=== PATIENT | male | born 2000 | race Caucasian/White ===

== ENCOUNTER 2024-09-15 23:35 | Emergency (ER) | payer OTHER, SELFPAY ==
--- NOTE | ~2024-09-15 | CT_ITS ---
CT of the Abdomen and Pelvis: Indication: Abdominal pain Technique: 2.5 mm axial scans were obtained through the abdomen and pelvis following intravenous adm inistration of 100 cc of Omnipaque 350. Dose reduction technique was used on this scan by utilizing a utomated exposure control and iterative reconstruction technique. The dose-length product (DLP) was 4 59.48 mGy-cm. Findings: Scans through the lung bases demonstrate calcified medial left basilar pulmonary nodule. The liver, spleen, pancreas, gallbladder, adrenals and kidneys are within normal limits. No evidence of aortic aneurysm. No lymphadenopathy. No bowel obstruction or bowel wall thickening. There is no evidence to suggest acute appendicitis. Images through the pelvis were performed. Urinary bladder unremarkable. No pelvic mass seen. No ascit es. Impression: No significant abnormalities seen. Reviewed, dictated and finalized at [facility]. RY SAW OPERATOR Impression: No significant abnormalities seen.
[2024-09-15 23:48] VITALS: BP 99/65; PULSE 67; RESP 16; TEMP 36.6; O2SAT 100
[2024-09-16 00:07] LABS: Alanine Aminotransferase 21 U/L (6-50); Albumin Level 4.5 g/dL (3.5-5.1); Alkaline Phosphatase 59 U/L (38-126); Anion Gap 7 mmol/L (4-12); Aspartate Amino Transferase 21 U/L (17-59); Bilirubin,Total 0.8 mg/dL (0.2-1.3); Blood Urea Nitrogen 12 mg/dL (9-20); Carbon Dioxide 29 mmol/L (22-30); Chloride 103 mmol/L (98-107); Estimated CRCL calculation 126 ml/min; Estimated Glomerular Filt Rate > 60; Glucose 106 mg/dL (65-110); Lipase 125 U/L (23-300); Potassium 3.3 mmol/L (3.4-5.0); Sodium 139 mmol/L (137-145)
[2024-09-16 00:13] LABS: Basophils Percent Auto 0.4 % (0.2-1.2); Eosinophils Absolute Auto 0.1 K/mm3 (0-0.3); Eosinophils Percent Auto 0.7 % (0-4.4); Hematocrit 42.3 % (42.0-52.0); Hemoglobin 14.7 g/dL (14.0-18.0); Immature Granulocyte Absolute 0.12 K/mm3 (0.00-0.031); Immature Granulocyte Percent A 1.3 % (0-0.5); Lymphocytes Absolute Auto 4.05 K/mm3 (0.9-3.2); Lymphocytes Percent Auto 43.2 % (18.3-44.2); Mean Corpuscular HGB Conc 34.8 g/dl (32-36); Mean Corpuscular Hemoglobin 31.4 pg (26-34); Mean Corpuscular Volume 90.4 fl (80-100); Mean Platelet Volume 10.8 fl (7.4-10.4); Monocytes Absolute Auto 0.8 K/mm3 (0.1-0.6); Monocytes Percent Auto 8.2 % (2.6-8.5); Neutrophils Absolute Auto 4.3 K/mm3 (1.3-6.7); Neutrophils Percent Auto 46.2 % (45.5-73.1); Platelet Count Result 302 k/mm3 (150-375); Red Blood Count 4.68 M/mm3 (4.6-6.20); Red Cell Distribution Width 12.1 % (11.5-14.5); White Blood Count 9.4 K/mm3 (4.5-10.0)
[2024-09-16 01:00] VITALS: BP 124/70; PULSE 61; RESP 14; TEMP 36.4; O2SAT 100
[2024-09-16 01:19] LABS: Add Urine Microscopic? YES; Appearance Urine Clear (Clear); Bacteria Urine None Seen /hpf; Bilirubin Urine Negative (Negative); Blood Urine Negative (Negative); Color Urine Yellow (Yellow); Glucose Urine UA Negative (Negative); Ketones Urine Negative (Negative); Leukocyte Esterase Ur Negative LEU/UL (Negative); Mucus Urine Present /lpf; Need Manual Microscopic Reviewed; Nitrate Urine Negative (Negative); Non Pathogenic Casts 0-2; Protein Urine Trace mg/dL (Negative); RBC Urine 0-2 /hpf (0-2); Squamous Epithelial Cell Urine None Seen /hpf (Few); WBC Urine 0-5 /hpf (0-3); pH Urine 5.5 (5.0-9.0)
[2024-09-16] MEDS: Please add drug allergy info to patient profile. 1 EACH XX (01:21)
[2024-09-16] MEDS: SODIUM CHLORIDE 0.9% IV 1,000 ML 999 ML IV CONT (01:21)
--- NOTE | 2024-09-16 03:31 | ED.GENADULT ---
HPI - General Adult General Chief complaint: Abdominal Pain Stated complaint: abd pain Time Seen by Provider: 09/16/24 00:59 History of Present Illness HPI narrative: Patient is 24 and gentleman who presents emergency department chief complaint of right-sided abdominal pain. Patient reports pain began about 1 hour ago reports that it was worse with movement the patient does report that it was also worse with deep inspiration. Patient reports has has gotten back in the emergency department the pain has improved Related Data Allergies Allergy/AdvReac Type Severity Reaction Status Date / Time No Known Allergies Allergy Verified 09/16/24 01:17 Review of Systems Review of Systems: A 10 system review of systems was completed on the patient and is negative except for what is stated in the HPI. Nursing and ancillary documentation was reviewed. Exam Narrative: GENERAL: Well-appearing, well-nourished, and in no acute distress. HEAD: Normocephalic, atraumatic. EYES: PERRLA and EOMI. ENT: Nares clear, no rhinorrhea or epistaxis. Mucous membranes moist. NECK: Supple. CHEST: Clear to auscultation. No respiratory distress. HEART: Regular rate and rhythm. No murmur heard. Normal peripheral pulses. ABDOMEN: Soft, nontender, nondistended, normal active bowel sounds. EXTREMITIES: Normal range of motion. No edema. SKIN: Warm, dry, no rash. NEURO: No focal deficits. Alert and oriented x3. PSYCH: Normal mood and affect. Course Vital Signs Vital signs: Vital Signs Temperature 36.6 C 09/15/24 23:48 Pulse Rate 67 09/15/24 23:48 Respiratory Rate 16 09/15/24 23:48 Blood Pressure 99/65 L 09/15/24 23:48 Pulse Oximetry 100 09/15/24 23:48 Temperature 36.6 C 09/16/24 03:32 Pulse Rate 80 09/16/24 03:32 Respiratory Rate 16 09/16/24 03:32 Blood Pressure 113/62 09/16/24 03:32 Pulse Oximetry 97 09/16/24 03:32 Medical Decision Making [facility] Narrative Medical decision making narrative: Differential diagnosis includes intra-abdominal infection, cholecystitis, choledocholithiasis, pancreatitis, intra-abdominal infection CT scan of the abdomen pelvis showed no acute abnormality Laboratory studies were obtained showed normal CBC normal CMP lipase was normal urinalysis was within normal limits. Vital Signs Vital Signs: Vital Signs Temperature 36.6 C 09/15/24 23:48 Pulse Rate 67 09/15/24 23:48 Respiratory Rate 16 09/15/24 23:48 Blood Pressure 99/65 L 09/15/24 23:48 Pulse Oximetry 100 09/15/24 23:48 Temperature 36.6 C 09/16/24 03:32 Pulse Rate 80 09/16/24 03:32 Respiratory Rate 16 09/16/24 03:32 Blood Pressure 113/62 09/16/24 03:32 Pulse Oximetry 97 09/16/24 03:32 Lab Data 09/15/24 23:50 09/15/24 23:50 Labs: Lab Results 09/15/24 09/16/24 Range/Units 23:50 01:00 WBC 9.4 (4.5-10.0) K/mm3 RBC 4.68 (4.6-6.20) M/mm3 Hgb 14.7 (14.0-18.0) g/dL Hct 42.3 (42.0-52.0) % MCV 90.4 (80-100) fl MCH 31.4 (26-34) pg MCHC 34.8 (32-36) g/dl RDW 12.1 (11.5-14.5) % Plt Count 302 (150-375) k/mm3 MPV 10.8 H (7.4-10.4) fl Immature Gran % (Auto) 1.3 H (0-0.5) % Neut % (Auto) 46.2 (45.5-73.1) % Lymph % (Auto) 43.2 (18.3-44.2) % Ashley % (Auto) 8.2 (2.6-8.5) % Eos % (Auto) 0.7 (0-4.4) % Baso % (Auto) 0.4 (0.2-1.2) % Lymph # (Auto) 4.05 H (0.9-3.2) K/mm3 Ashley # (Auto) 0.8 H (0.1-0.6) K/mm3 Eos # (Auto) 0.1 (0-0.3) K/mm3 Baso # (Auto) 0.0 (0.0-0.1) K/mm3 Abs Immat Gran (auto) 0.12 H (0.00-0.031) K/mm3 Absolute Neuts (auto) 4.3 (1.3-6.7) K/mm3 Absolute Nucleated RBC 0.000 (0.0-0.012) K/mm3 Nucleated RBC % 0.0 (0.0-0.2) % Sodium 139 (137-145) mmol/L Potassium 3.3 L (3.4-5.0) mmol/L Chloride 103 (98-107) mmol/L Carbon Dioxide 29 (22-30) mmol/L Anion Gap 7 (4-12) mmol/L BUN 12 (9-20) mg/dL Creatinine 0.81 (0.7-1.3) mg/dL Estim Creat Clear Calc 126 ml/min Estimated GFR > 60 (59 - ) Glucose 106 (65-110) mg/dL Calcium 9.0 (8.4-10.2) mg/dL Total Bilirubin 0.8 (0.2-1.3) mg/dL AST 21 (17-59) U/L ALT 21 (6-50) U/L Alkaline Phosphatase 59 (38-126) U/L Total Protein 7.0 (6.3-8.2) g/dL Albumin 4.5 (3.5-5.1) g/dL Lipase 125 (23-300) U/L Urine Color Yellow (Yellow) Urine Appearance Clear (Clear) Urine pH 5.5 (5.0-9.0) Ur Specific Erie 1.030 (1.001-1.035) Urine Protein Trace (Negative) mg/dL Urine Glucose (UA) Negative (Negative) mg/dL Urine Ketones Negative (Negative) mg/dL Ur Blood (Man) Negative (Negative) Urine Nitrate Negative (Negative) Urine Bilirubin Negative (Negative) Urine Urobilinogen 1.0 (<2.0) mg/dL Add Ur Microanalysis Reviewed Leukocyte Esterase Rfl Negative (Negative) STEPHANIE/UL Urine RBC 0-2 (0-2) /hpf Urine WBC 0-5 (0-3) /hpf Ur Squamous Epith Cells None seen (Few) /hpf Urine Bacteria None seen /hpf Urine Casts 0-2 Urine Mucus Present /lpf Discharge Plan Discharge Clinical Impression: Abdominal pain, acute, right upper quadrant Patient Disposition: Home, Self-Care Condition: Stable Instructions: Antibiotic Form, Abdominal Pain (ED) Patient Language: Cymro Prescriptions: New dicyclomine 20 mg tablet 20 mg PO QID PRN (Reason: abdominal discomfort) Qty: 20 0RF ondansetron 4 mg tablet,disintegrating 4 mg PO Q8H PRN (Reason: nausea and vomiting) Qty: 10 0RF Follow-up/Referrals: Osmin Booker MD [Physician] - PHYSICIAN,FENCE ERECTOR [Primary Care Provider] - Time of Disposition: 03:33
[2024-09-16 03:32] VITALS: BP 113/62; PULSE 80; RESP 16; TEMP 36.6; O2SAT 97
[2024-09-16 03:52] VITALS: BP 113/62; PULSE 77; RESP 18; O2SAT 100
--- OUTSIDE RECORDS SUMMARY | 2024-09-23 01:15 | XMS_ITS | Encounter Summary ---
Author Organization [facility] Address [address] [place] [address] Care Team Providers Care Jalousies Installer Name Role Phone Unavailable Primary Care Provider Unavailabl e Reason for Visit * Reason Onset Date Comments Follow Up 05/12/2024 Encounter Details Date Type Department Care Team (Late st Contact Info) Description 05/12/[address] [facility] [employer] [address] [place] [address] Jessica Strickland ANP [address] [place] [address] Follow Up Social History Tobacco Use Types Packs/Day Years Used Date Smoking Tobacco: Never Assessed Sex and Gender Information Value Date Recorded Sex Assigned at Not on file Legal Sex Male 6:44 AM CDT Gender Identity Not on file Sexual Orientation Not on file documented as of this encounter Miscellaneous Notes * Telephone Encounter - Jewell Palomo RN - 05/12/2024 3:52 PM CDT Pt saw online lab results * Telephone Encounter - Jessica Strickland ANP - 05/12/2024 1:29 PM CDT Please call pt 10/11 unread My MyVerse message: Lab results for liver, kidneys, thyroid, cholesterol all within normal values. Blood counts look good other than MCHC is just a little under normal- can sometimes indicate some anemia Please encourage him to share w/ PCP Thanks documented in this encounter Plan of Treatment Not on file documented as of this encounter Visit Diagnoses Not on filedocumented in this encounter
--- OUTSIDE RECORDS SUMMARY | 2024-09-23 01:15 | XMS_ITS | Encounter Summary ---
Author Organization [facility] Address [address] [place] [address] Care Team Providers Care Incoming Inspector Name Role Phone Unavailable Primary Care Provider Unavailabl e Encounter Details Date Type Department Care Team (Late st Contact Info) Description 05/06/2024 External Device Data [facility] ABSTRACTION Provider, Abstract NO ADDRESS ON FILE Social History Tobacco Use Types Packs/Day Years Used Date Smoking Tobacco: Never Assessed Sex and Gender Information Value Date Recorded Sex Assigned at Not on file Legal Sex Male 6:44 AM CDT Gender Identity Not on file Sexual Orientation Not on file documented as of this encounter Plan of Treatment Not on file documented as of this encounter Visit Diagnoses Not on filedocumented in this encounter
--- OUTSIDE RECORDS SUMMARY | 2024-09-23 01:15 | XMS_ITS | Encounter Summary ---
Author Organization [facility] Address [address] [place] [address] Care Team Providers Care Clerical And Administrative Workers Name Role Phone Unavailable Primary Care Provider Unavailabl e Encounter Details Date Type Department Care Team (Late st Contact Info) Description 05/05/2024 External Device Data [facility] ABSTRACTION Provider, Abstract [...]
--- OUTSIDE RECORDS SUMMARY | 2024-09-23 01:15 | XMS_ITS | Encounter Summary ---
Author Organization [facility] Address [address] [place] [address] Care Team Providers Care Recruitment And Outreach Assistant Name Role Phone Unavailable Primary Care Provider Unavailabl e Reason for Visit * Reason Comments Labs Only Encounter Details Date Type Department Care Team (Late st Contact Info) Description 04/30/2024 10:00 AM CDT Office Visit [facility] [employer] [place] [address] [place] [address] Screening for condition Social History Tobacco Use Types Packs/Day Years Used Date Smoking Tobacco: Never Assessed Sex and Gender Information Value Date Recorded Sex Assigned at Not on file Legal Sex Male 6:44 AM CDT Gender Identity Not on file Sexual Orientation Not on file documented as of this encounter Last Filed Vital Signs Vital Sign Reading Time Taken Comments Blood Pressure 120/70 04/30/2024 10:09 AM CDT Pulse - - Temperature - - Respiratory Rate - - Oxygen Saturation - - Inhaled Oxygen Concentration - - Weight 76.2 kg (168 lb) 04/30/2024 10:09 AM CDT Height 177.8 cm (5' 10 ) 04/30/2024 10:09 AM CDT Body Mass Index 24.11 04/30/2024 10:09 AM CDT documented in this encounter Progress Notes * Anthony Ahmadi - 04/30/2024 10:10 AM CDT Patient presents for labs only, drawn from left ac, one stick. Patient tolerated well. documented in this encounter Plan of Treatment Not on file documented as of this encounter Procedures Procedure Name Priority Date/Time Associated Diagnosis Comments CBC WITH DIFFERENTIAL Routine 04/30/2024 9:52 AM CDT Screening for condition TSH Routine 04/30/2024 9:52 AM CDT Screening for condition LIPID PANEL Routine 04/30/2024 9:52 AM CDT Screening for condition COMPREHENSIVE METABOLIC PANEL Routine 04/30/2024 9:52 AM CDT Screening for condition documented in this encounter Results * (ABNORMAL) CBC WITH DIFFERENTIAL (04/30/2024 9:52 AM CDT) WBC 6.1 3.8 - 10.8 Thousand/u L [facility] RBC 4.93 4.20 - 5.80 Million/uL [facility] HEMOGLOBIN 15.1 13.2 - 17.1 g/dL [facility] HEMATOCRIT 47.6 38.5 - 50.0 % [facility] MCV 96.6 80.0 - 100.0 fL [facility] MCH 30.6 27.0 - 33.0 pg [facility] MCHC 31.7(L) 32.0 - 36.0 g/dL [facility] RDW 11.8 11.0 - 15.0 % [facility] PLATELETS 278 140 - 400 Thousand/u L [facility] MPV 11.1 7.5 - 12.5 fL [facility] NEUTROPHIL ABSOLUTE 3,221 1,500 - 7,800 cells/uL [facility] LYMPHOCYTE ABSOLUTE 2,288 850 - 3,900 cells/uL [facility] MONOCYTE ABSOLUTE 525 200 - 950 cells/uL [facility] EOSINOPHIL ABSOLUTE 49 15 - 500 cells/uL [facility] BASOPHILS ABSOLUTE 18 0 - 200 cells/uL [facility] NEUTROPHIL 52.8 % [facility] LYMPHOCYTES 37.5 % [facility] MONOCYTE 8.6 % [facility] EOSINOPHILS 0.8 % [facility] BASOPHILS 0.3 % [facility] Comment: Test Performed at: [facility] [address] ??[phone] Jah Reddy MD Blood 04/30/2024 9:52 AM CDT 05/01/2024 7:28 AM CDT us Jessica Strickland ANP HEMATOLOGY ORDERABLE S Final Result [facility] [phone] [facility] [address] [place] [address] * COMPREHENSIVE METABOLIC PANEL (04/30/2024 9:52 AM CDT) GLUCOSE 84 65 - 99 mg/dL [facility] Comment: ? Fasting reference interval BUN 13 7 - 25 mg/dL [facility] CREATININE 0.83 0.60 - 1.24 mg/dL [facility] GFR 125 > OR = 60 mL/min/1. 73m2 [facility] BUN/CREAT RATIO SEE NOTE: (calc) [facility] Comment: ?? Not Reported: BUN and Creatinine are within ?? reference range. ? SODIUM 140 135 - 146 mmol/L [facility] POTASSIUM 4.5 3.5 - 5.3 mmol/L [facility] CHLORIDE 104 98 - 110 mmol/L [facility] CO2 28 20 - 32 mmol/L [facility] CALCIUM 9.6 8.6 - 10.3 mg/dL [facility] TOTAL PROTEIN 7.4 6.1 - 8.1 g/dL [facility] ALBUMIN 4.8 3.6 - 5.1 g/dL [facility] GLOBULIN 2.6 1.9 - 3.7 g/dL (calc) [facility] ALBUMIN/GLOBULIN RATIO 1.8 1.0 - 2.5 (calc) [facility] BILIRUBIN TOTAL 0.9 0.2 - 1.2 mg/dL [facility] ALKALINE PHOSPHATASE 55 36 - 130 U/L [facility] AST 14 10 - 40 U/L [facility] ALT 20 9 - 46 U/L [facility] Comment: Test Performed at: [facility] [address] [place], [place] ??[phone] Jah Reddy MD Blood 04/30/2024 9:52 AM CDT 05/01/2024 7:28 AM CDT Jessica Strickland ANP CHEMISTRY ORDERABLES Final Result [facility] [phone] [facility] [employer] [address] * LIPID PANEL (04/30/2024 9:52 AM CDT) CHOLESTEROL 127 <200 mg/dL [facility] HDL 54 > OR = 40 mg/dL [facility] TRIGLYCERIDE 53 <150 mg/dL [facility] LDL CALCULATED 60 mg/dL (calc) [facility] Comment: Reference range: <100 Desirable range <100 mg/dL for primary prevention; ?? <70 mg/dL for patients with CHD or diabetic patients with > or = 2 CHD risk factors. LDL-C is now calculated using the Samuel-Malcom calculation, which is a validated novel method providing better accuracy than the Friedewald equation in the estimation of LDL-C. Samuel SS et al. CHERIE. 2013;310(19): 4723-4685 (http://education.[employer] Software/faq/OJR460) CHOL/HDL RATIO 2.4 <5.0 (calc) [facility] NON-HDL CHOLESTEROL 73 <130 mg/dL (calc) [facility] Comment: For patients with diabetes plus 1 major ASCVD risk factor, treating to a non-HDL-C goal of <100 mg/dL (LDL-C of <70 mg/dL) is considered a therapeutic option. Test Performed at: [facility] [address] [place], [place] ??[phone] Jah Reddy MD Blood 04/30/2024 9:52 AM CDT 05/01/2024 7:28 AM CDT Jessica Strickland ANP CHEMISTRY ORDERABLES Final Result Performing Organization Address City/[facility] Co de Phone Number [facility] [phone] [facility] [address] * TSH (04/30/2024 9:52 AM CDT) TSH 1.03 0.40 - 4.50 mIU/L [facility] Comment: Test Performed at: [facility] ??[phone] Jah Reddy MD Blood 04/30/2024 9:52 AM CDT 05/01/2024 7:28 AM CDT us Jessica Strickland ANP CHEMISTRY ORDERABLES Final Result Performing Organization Address City/[facility] Co de Phone Number [facility] [phone] [facility] [address] documented in this encounter Visit Diagnoses Diagnosis Screening for condition Screening for unspecified condition documented in this encounter
--- OUTSIDE RECORDS SUMMARY | 2024-09-23 01:15 | XMS_ITS | Encounter Summary ---
Author Organization [facility] Address [address] [place] [address] Care Team Providers Care Battery Assembler Name Role Phone Unavailable Primary Care Provider [...]
--- OUTSIDE RECORDS SUMMARY | 2024-09-23 01:15 | XMS_ITS | Clinical Summary ---
Author Organization [facility] Address [address] [address] [place] [address] Phone Care Team Providers Care Flooring Mechanic Name Role Phone Unavailable Primary Care Provider Unavailabl e Active Problems No known active problems Social History Tobacco Use Types Packs/Day Years Used Date Smoking Tobacco: Never Assessed Sex and Gender Information Value Date Recorded Sex Assigned at Not on file Legal Sex Male 6:44 AM CDT Gender Identity Not on file Sexual Orientation Not on file Last Filed Vital Signs Vital Sign Reading Time Taken Comments Blood Pressure 120/70 04/30/2024 10:09 AM CDT Pulse - - Temperature - - Respiratory Rate - - Oxygen Saturation - - Inhaled Oxygen Concentration - - Weight 76.2 kg (168 lb) 04/30/2024 10:09 AM CDT Height 177.8 cm (5' 10 ) 04/30/2024 10:09 AM CDT Body Mass Index 24.11 04/30/2024 10:09 AM CDT Plan of Treatment Health Maintenance Due Date Last Done Comments HPV VACCINES (1 - Male 3-dos e series) 2015 DTAP/TDAP/TD VACCINES (1 - Tdap) 2019 HEPATITIS B VACCINES (1 of 3 - 19+ 3-dose series) 2019 INFLUENZA VACCINE (#1) 2024 PNEUMOCOCCAL VACCINE 0-64 YEARS Aged Out No longer eligible based on patient's age to complete this topic Insurance [employer] OPEN ACCESS HMO * Guarantor: [employer] SRIKANTH Wallace (C) Account Type Relation to Patient Date of Phone Billing Address Corporate Employer ATTN: KAVEH GAYTAN [address] [address] [facility] OPEN ACCESS H[facility]
--- OUTSIDE RECORDS SUMMARY | 2024-09-23 01:15 | XMS_ITS | Encounter Summary ---
Author Organization [facility] Address [address] [place] [address] Care Team Providers Care Lye Treater Name Role Phone Unavailable Primary Care Provider Unavailabl e Reason for Visit * Reason Onset Date Comments Results 05/04/2024 Encounter Details Date Type Department Care Team (Late st Contact Info) Description 05/04/2024 Telephone [facility] [employer] [address] [place] [address] Jessica Strickland ANP [address] [place] [address] Results Social History Tobacco Use Types Packs/Day Years [...]
--- OUTSIDE RECORDS SUMMARY | 2024-09-23 01:15 | XMS_ITS | Encounter Summary ---
Author Organization [facility] Address [address] [place] [address] Care Team Providers Care Donor Services Coordinator Name Role Phone Unavailable Primary Care Provider Unavailabl e Encounter Details Date Type Department Care Team (Late st Contact Info) Description 05/26/2024 External Device Data [facility] ABSTRACTION Provider, Abstract [...]
== END 2024-09-16 03:53 | disposition home or self-care (01) ==
PROVIDERS: Emergency Provider Emergency Medicine
DX: R10.11 Right upper quadrant pain (principal)
CPT/HCPCS: 36415; 74177; 80053; 81001; 83690; 85025; 96361; 96374; 99284; J7030; Q9967